=== PATIENT | male | born 1980 | race Caucasian/White ===

== ENCOUNTER 2017-03-23 03:27 | Emergency (ER) | payer SELFPAY ==
[~2017-03-23] VITALS: Ht 175.3 cm; Wt 80.0 kg
[2017-03-23 03:29] VITALS: BP 138/86; PULSE 115; RESP 16; TEMP 97.8; O2SAT 98
[2017-03-23] MEDS ORDERED: CYCL1TAB29 PO (04:52)
[2017-03-23] MEDS ORDERED: IBUP800T23 PO (04:52)
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
== END 2017-03-23 05:19 | disposition home or self-care (01) ==
LOC: NEPD 03:27
DX: S80.02XA Contusion of left knee, initial encounter (principal); S86.912A Strain of unspecified muscle(s) and tendon(s) at lower leg level, left leg, initial encounter; V43.52XA Car driver injured in collision with other type car in traffic accident, initial encounter; Y92.414 Local residential or business street as the place of occurrence of the external cause; F31.9 Bipolar disorder, unspecified; Z72.0 Tobacco use
CPT/HCPCS: 99283